=== PATIENT | female | born 1975 | race Caucasian/White ===

== ENCOUNTER 2016-07-21 06:53 | Emergency (ER) | payer BC ==
[2016-07-21] MEDS ORDERED: Sodium Chloride 0.9% 10 ML Syringe FLUSH PRN (07:16)
[2016-07-21] MEDS ORDERED: Sodium Chloride 0.9% 2.5 ML Syringe FLUSH PRN (07:16)
[2016-07-21] MEDS ORDERED: Sodium Chloride 0.9% 1,000 ML IV ONE (07:16)
--- NOTE | 2016-07-21 07:20 | EDM.PDOC ---
ED HISTORY OF PRESENT ILLNESS - General Chief Complaint: Cardiovascular Problem Stated Complaint: SVT Time Seen by Provider: 07/21/16 07:09 - History of Present Illness INITIAL COMMENTS - FREE TEXT/NARRATIVE: HISTORY AND PHYSICAL: History of present illness: Patient is a 41-year-old female who presents with complaints of SVT via EMS. According to the patient she has had this before and a Holter monitor but has never done EP studies. She was here in March and had SVT and converted with adenosine 6 mg times one which do not follow up with her shed hand afterwards. She said she went into it this morning but had no triggers. She's been eating and drinking normally hasn't had fever chills chest pain shortness of breath abdominal pain or vomiting/diarrhea. She does smoke cigarettes but denies drug use and does not drink excessive caffeine. She did have alcohol last evening. When she arrived her her rate was in the 180s but with the IV start she vagalled and right now her heart rate is 100-110. She said she tried vagal maneuvers at home but they did not seem to work. She has no leg pain or swelling Review of systems: As per history of present illness and below otherwise all systems reviewed and negative. Past medical history: As per history of present illness and as reviewed below otherwise noncontributory. Surgical history: As per history of present illness and as reviewed below otherwise noncontributory. Social history: No reported history of drug or alcohol abuse. Family history: As per history of present illness and as reviewed below otherwise noncontributory. Physical exam: General: Well-developed well-nourished female who is nontoxic and speaking clearly and easily in ED vital signs have been reviewed by me HEENT: Atraumatic, normocephalic, negative for conjunctival pallor or scleral icterus, mucous membranes moist, throat clear, neck supple, nontender, trachea midline. No thyromegaly Lungs: Clear to auscultation, breath sounds equal bilaterally, chest nontender. Heart: S1S2, regular rhythm and slightly tachycardic rate of my evaluation, negative for clicks, rubs, or JVD. Abdomen: Soft, nondistended, nontender. Negative for masses or hepatosplenomegaly. Negative for costovertebral tenderness. Pelvis: Stable nontender. Genitourinary: Deferred. Rectal: Deferred. Extremities: Atraumatic, negative for cords or calf pain. Neurovascular unremarkable. No pedal edema or leg asymmetry Neuro: Awake, alert, oriented. Cranial nerves II through XII unremarkable. Cerebellum unremarkable. Motor and sensory unremarkable throughout. Exam nonfocal. Diagnostics: EKG CBC CMP troponin TSH portable chest x-ray Therapeutics: IV fluids monitor O2 as needed Please note on the rhythm strip that EMS brought in her heart rate was 186 and an SVT was identified [id number]: Case was discussed with her shed hand Dr. Walker; He has her information in his office will call for followup appointment. Patient is aware of this. I will also give her referral to primary care. I've advised hydration avoidance of caffeine and alcohol and reasons to return to the ED. Heart rate at 0815a is in the 90s and patient feels improved Impression: SVT, spontaneous conversion with vagal maneuver, history of same Definitive disposition and diagnosis as appropriate pending reevaluation and review of above. - Related Data Allergies/ADRs: Allergies Allergy/AdvReac Type Severity Reaction Status Date / Time Penicillins Allergy Cannot Verified 07/21/16 06:59 Remember Home Meds: Home Meds Albuterol [IJD: Albuterol HFA] 1 puff INH TID PRN 01/09/16 [History] Fluticasone/Salmeterol [Advair Diskus 250-50] 1 puff INH BID #1 inhaler [Rx] Loratadine 10 mg DAILY 03/21/16 [History] Prednisone [IJD: predniSONE] 20 mg PO TID 03/21/16 [History] Past Medical History HEENT History: Reports: None Cardiovascular History: Reports: Other (see below) Other Cardiovascular History: svt Respiratory History: Reports: Asthma Gastrointestinal History: Reports: None Genitourinary History: Reports: None 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: Musculoskeletal History: Reports: None Neurological History: Reports: None Psychiatric History: Reports: None Other Psychiatric History: Received treatment for alcohol Endocrine/Metabolic History: Reports: None Hematologic History: Reports: None Immunologic History: Reports: None Oncologic (Cancer) History: Reports: None Dermatologic History: Reports: None - Infectious Disease History Infectious Disease History: Reports: Chicken pox - Past Surgical History Head Surgeries/Procedures: Reports: None GI Surgical History: Reports: None Female Surgical History: Reports: section Endocrine Surgical History: Reports: None Musculoskeletal Surgical History: Reports: None Dermatological Surgical History: Reports: None Social & Family History - Family History Family Medical History: Noncontributory - Tobacco Use Smoking Status *Q: Current Every Day Smoker Years of Tobacco use: 20 Packs/Tins Daily: 0.2 Used Tobacco, but Quit: Yes Month Tobacco Last Used: 10/2015 Second Hand Smoke Exposure: No - Recreational Drug Use Recreational Drug Use: No ED ROS GENERAL - Review of Systems Review Of Systems: ROS reveals no pertinent complaints other than HPI. ED EXAM, GENERAL - Physical Exam Exam: See Below (See dictation) Course - Vital Signs Last Recorded V/S: Last Vital Signs Temp 36.6 C 07/21/16 07:00 Pulse 115 H 07/21/16 07:04 Resp 20 07/21/16 07:00 BP 106/76 07/21/16 07:00 Pulse Ox 98 07/21/16 07:00 - Orders/Labs/Meds Orders: Active Orders 24 hr Category Date Time Status Cardiac Monitoring [RC] . DIRECTED Care 07/21/16 07:15 Active EKG Documentation Completion [RC] STAT Care 07/21/16 07:15 Active Pulse Oximetry [RC] ASDIRECTED Care 07/21/16 07:15 Active Chest 1V Frontal [CR] Stat Exams 07/21/16 07:20 Taken Sodium Chloride 0.9% [Saline Flush] Med 07/21/16 07:16 Active 10 ml FLUSH ASDIRECTED PRN Sodium Chloride 0.9% [Saline Flush] Med 07/21/16 07:16 Active 2.5 ml FLUSH ASDIRECTED PRN Saline Lock Insert [OM.PC] Stat Oth 07/21/16 07:16 Ordered Medication Orders Sodium Chloride (Saline Flush) 10 ml FLUSH ASDIRECTED PRN PRN Reason: Keep Vein Open Sodium Chloride (Saline Flush) 2.5 ml FLUSH ASDIRECTED PRN PRN Reason: Keep Vein Open Labs: Laboratory Tests 07/21/16 07/21/16 07/21/16 Range/Units 07:04 07:04 07:04 WBC 5.63 (4.0-11.0) K/uL RBC 4.67 (4.30-5.90) M/uL Hgb 14.8 (12.0-16.0) g/dL Hct 43.7 (36.0-46.0) % MCV 93.6 (80.0-98.0) fL MCH 31.7 (27.0-32.0) pg MCHC 33.9 (31.0-37.0) g/dL RDW Std Deviation 45.4 (28.0-62.0) fl RDW Coeff of Kenny 14 (11.0-15.0) % Plt Count 168 (150-400) K/uL MPV 9.70 (7.40-12.00) fL Neut % (Auto) 63.7 (48.0-80.0) % Lymph % (Auto) 21.7 (16.0-40.0) % [place] % (Auto) 11.0 (0.0-15.0) % Eos % (Auto) 3.2 (0.0-7.0) % Baso % (Auto) 0.4 (0.0-1.5) % Neut # 3.6 (1.4-5.7) K/uL Lymph # 1.2 (0.6-2.4) K/uL [place] # 0.6 (0.0-0.8) K/uL Eos # 0.2 (0.0-0.7) K/uL Baso # 0.0 (0.0-0.1) K/uL Sodium 138 (136-146) mmol/L Potassium 4.2 (3.5-5.1) mmol/L Chloride 107 (98-110) mmol/L Carbon Dioxide 21 (21-31) mmol/L BUN 8 (6.0-23.0) mg/dL Creatinine 0.8 (0.6-1.5) mg/dL Est Cr Clr Drug Dosing 95.74 mL/min Estimated GFR (MDRD) > 60.0 ml/min Glucose 116 H (60-110) mg/dL Calcium 9.1 (8.8-10.8) mg/dL Total Bilirubin 0.3 (0.1-1.5) mg/dL AST 95 H (5-40) IU/L ALT 109 H (8-54) IU/L Alkaline Phosphatase 65 (40-150) Troponin I < 0.10 (0.0-0.29) NG/ML Total Protein 8.3 H (6.0-8.0) g/dL Albumin 4.2 (3.5-5.0) g/dL Globulin 4.1 H (2.0-3.5) g/dL Albumin/Globulin Ratio 1.0 L (1.3-2.8) TSH 3rd Generation 1.76 (0.47-5.0) uIU/mL Meds: Medications Generic Name Dose Route Start Last Admin Trade Name Freq PRN Reason Stop Dose Admin Sodium Chloride 10 ml 07/21/16 07:16 Saline Flush FLUSH ASDIRECTED PRN Keep Vein Open Sodium Chloride 2.5 ml 07/21/16 07:16 Saline Flush FLUSH ASDIRECTED PRN Keep Vein Open Discontinued Medications Generic Name Dose Route Start Last Admin Trade Name Freq PRN Reason Stop Dose Admin Sodium Chloride 1,000 mls @ 999 mls/hr 07/21/16 07:16 07/21/16 07:23 Normal Saline IV 07/21/16 08:16 999 mls/hr STAT ONE Administration Departure - Departure Time of Disposition: 08:18 Disposition: Home, Self-Care 01 Condition: good Clinical Impression: SVT (supraventricular tachycardia) Forms: ED Department Discharge Additional Instructions: The following information is given to patients seen in the emergency department who are being discharged to home. This information is to outline your options for follow-up care. We provide all patients seen in our emergency department with a follow-up referral. The need for follow-up, as well as the timing and circumstances, are variable depending upon the specifics of your emergency department visit. If you don't have a primary care physician on staff, we will provide you with a referral. We always advise you to contact your personal physician following an emergency department visit to inform them of the circumstance of the visit and for follow-up with them and/or the need for any referrals to a consulting specialist. The emergency department will also refer you to a specialist when appropriate. This referral assures that you have the opportunity for followup care with a specialist. All of these measure are taken in an effort to provide you with optimal care, which includes your followup. Under all circumstances we always encourage you to contact your private physician who remains a resource for coordinating your care. When calling for followup care, please make the office aware that this follow-up is from your recent emergency room visit. If for any reason you are refused follow-up, please contact the [facility] emergency department at and ask to speak to the emergency department charge nurse. [facility] Primary care- Internal Medicine and Family [address] [address] These call and make appointment with primary care physician as we discussed and the shed hand's office will call you with a followup appointment with him. Please avoid caffeine and alcohol for the next 2 days and push hydration. Return to ER as needed and as discussed - My Orders Last 24 Hours: My Active Orders 07/21/16 07:15 Cardiac Monitoring [RC] . DIRECTED EKG Documentation Completion [RC] STAT Pulse Oximetry [RC] ASDIRECTED 07/21/16 07:16 Sodium Chloride 0.9% [Saline Flush] 10 ml FLUSH ASDIRECTED PRN Sodium Chloride 0.9% [Saline Flush] 2.5 ml FLUSH ASDIRECTED PRN Saline Lock Insert [OM.PC] Stat 07/21/16 07:20 Chest 1V Frontal [CR] Stat - Assessment/Plan Last 24 Hours: My Active Orders 07/21/16 07:15 Cardiac Monitoring [RC] . DIRECTED EKG Documentation Completion [RC] STAT Pulse Oximetry [RC] ASDIRECTED 07/21/16 07:16 Sodium Chloride 0.9% [Saline Flush] 10 ml FLUSH ASDIRECTED PRN Sodium Chloride 0.9% [Saline Flush] 2.5 ml FLUSH ASDIRECTED PRN Saline Lock Insert [OM.PC] Stat 07/21/16 07:20 Chest 1V Frontal [CR] Stat
[2016-07-21 07:43] LABS: CHLORIDE,CL 107 mmol/L (98-110); SODIUM,NA 138 mmol/L (136-146)
[2016-07-21 08:37] VITALS: BP 118/85
--- NOTE | 2016-07-21 19:56 | CR ---
EXAM DATE: 07/21/16 PATIENT'S AGE: 41 Patient: MEAGAN FREITAS Facility: [place], [place] Site . Site : 1975 Study: XRay Chest [id number] 7:38:00 AM Ordering Physician: Bebe Minor Final Report: INDICATION: Rapid heart rate. Technique: AP portable chest x-ray. Findings: Minimal peribronchial cuffing in the right suprahilar region could be related to bronchial inflammation. Bronchovascular markings in the perihilar regions are mildly increased. No focal infiltrate or consolidation in either lung. Heart size normal. Chest otherwise negative. Dictated by Chato Miller MD @ Jul 21 2016 7:49AM (Electronic Signature) Report Signed by Proxy and Original Signed Document filed in the Medical Record. MTDD
== END 2016-07-21 08:30 | disposition home or self-care (01) ==
LOC: MW.ED 06:53
DX: I47.1 Supraventricular tachycardia (principal); F17.210 Nicotine dependence, cigarettes, uncomplicated; Z88.0 Allergy status to penicillin; Z79.899 Other long term (current) drug therapy
CPT/HCPCS: 36415; 71010; 80053; 84443; 84484; 85025; 93005; 96360; 99285; J7040; 99284

== ENCOUNTER 2016-08-18 07:36 | Emergency (ER) | payer BC ==
[2016-08-18] MEDS ORDERED: Sodium Chloride 0.9% 10 ML Syringe FLUSH PRN (07:39)
[2016-08-18] MEDS ORDERED: Sodium Chloride 0.9% 2.5 ML Syringe FLUSH PRN (07:39)
[2016-08-18] MEDS ORDERED: Adenosine 6 MG/2 ML SDV IVPUSH ONE (07:47)
[2016-08-18] MEDS ORDERED: Adenosine 6 MG/2 ML SDV ONE (07:49)
[2016-08-18] MEDS ORDERED: Sodium Chloride 0.9% 500 ML IV SCH (07:57)
[2016-08-18] MEDS ORDERED: Sodium Chloride 0.9% 1,000 ML IV ONE (07:59)
[2016-08-18 08:31] LABS: CHLORIDE,CL 110 mmol/L (98-110); SODIUM,NA 139 mmol/L (136-146)
--- NOTE | 2016-08-18 08:39 | EDM.PDOC ---
ED HISTORY OF PRESENT ILLNESS - General Chief Complaint: Cardiovascular Problem Stated Complaint: RAPID HEARTBEAT Time Seen by Provider: 08/18/16 07:40 Source of Information: Reports: Patient History Limitations: Reports: No limitations - History of Present Illness INITIAL COMMENTS - FREE TEXT/NARRATIVE: History of present illness: [] Patient has a history of SVT and felt the palpitations start this morning. She denies any chest pain or shortness of breath states that she feels a lightheaded and dizzy. She has had adenosine in the past has worked well I did for many years on this morning without success the Review of systems: As per history of present illness and below otherwise all systems reviewed and negative. Past medical history: As per history of present illness and as reviewed below otherwise noncontributory. Surgical history: As per history of present illness and as reviewed below otherwise noncontributory. Social history: No reported history of drug or alcohol abuse. Family history: As per history of present illness and as reviewed below otherwise noncontributory. Physical exam: General: Well developed, well nourished in NAD HEENT: Atraumatic, normocephalic, pupils reactive, negative for conjunctival pallor or scleral icterus, mucous membranes moist, throat clear, neck supple, nontender, trachea midline. Lungs: Clear to auscultation, breath sounds equal bilaterally, chest nontender. Heart: S1S2, regular, negative for clicks, rubs, or JVD. Abdomen: Soft, nondistended, nontender. Negative for masses or hepatosplenomegaly. Negative for costovertebral tenderness. Pelvis: Stable nontender. Genitourinary: Deferred. Rectal: Deferred. Extremities: Atraumatic, negative for cords or calf pain. Neurovascular unremarkable. Neuro: Awake, alert, oriented. Cranial nerves II through XII unremarkable. Cerebellum unremarkable. Motor and sensory unremarkable throughout. Exam nonfocal. Diagnostics: [] EKG and labs showing SVT labs normal. Therapeutics: [] Adenosine Impression: [] SVT resolved with adenosine Plan: [] Followup cardiology call for an appointment Definitive disposition and diagnosis as appropriate pending reevaluation and review of above. - Related Data Allergies/ADRs: Allergies Allergy/AdvReac Type Severity Reaction Status Date / Time Penicillins Allergy Cannot Verified 07/21/16 06:59 Remember Home Meds: Home Meds Albuterol [IJD: Albuterol HFA] 1 puff INH TID PRN 01/09/16 [History] Loratadine 10 mg PO DAILY PRN 03/21/16 [History] Fluticasone/Salmeterol [Advair Diskus 250-50] 1 puff INH BID PRN 08/18/16 [ History] Past Medical History HEENT History: Reports: None Cardiovascular History: Reports: Other (see below) Other Cardiovascular History: svt Respiratory History: Reports: Asthma Gastrointestinal History: Reports: None Genitourinary History: Reports: None 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: Musculoskeletal History: Reports: None Neurological History: Reports: None Psychiatric History: Reports: None Other Psychiatric History: Received treatment for alcohol Endocrine/Metabolic History: Reports: None Hematologic History: Reports: None Immunologic History: Reports: None Oncologic (Cancer) History: Reports: None Dermatologic History: Reports: None - Infectious Disease History Infectious Disease History: Reports: Chicken pox - Past Surgical History Head Surgeries/Procedures: Reports: None GI Surgical History: Reports: None Female Surgical History: Reports: section Endocrine Surgical History: Reports: None Musculoskeletal Surgical History: Reports: None Dermatological Surgical History: Reports: None Social & Family History - Family History Family Medical History: Noncontributory - Tobacco Use Smoking Status *Q: Current Every Day Smoker Years of Tobacco use: 15 Packs/Tins Daily: 0.5 Used Tobacco, but Quit: Yes Month Tobacco Last Used: 10/2015 Second Hand Smoke Exposure: No - Caffeine Use Caffeine Use: Reports: Coffee - Recreational Drug Use Recreational Drug Use: No ED ROS GENERAL - Review of Systems Review Of Systems: See Below (See history of present illness) ED EXAM, GENERAL - Physical Exam Exam: See Below (See history of present illness) Course - Vital Signs Last Recorded V/S: Last Vital Signs Temp Pulse 166 H 08/18/16 08:11 Resp 18 08/18/16 07:44 BP 111/72 08/18/16 08:11 Pulse Ox 96 08/18/16 08:11 - Orders/Labs/Meds Orders: Active Orders 24 hr Category Date Time Status EKG 12 Lead [EKG Documentation Completion] [RC] STAT Care 08/18/16 08:14 Active EKG Documentation Completion [RC] STAT Care 08/18/16 07:39 Active Sodium Chloride 0.9% [Normal Saline] 500 ml Med 04/17/17 07:57 Active IV .BOLUS Sodium Chloride 0.9% [Saline Flush] Med 08/18/16 07:39 Active 10 ml FLUSH ASDIRECTED PRN Sodium Chloride 0.9% [Saline Flush] Med 08/18/16 07:39 Active 2.5 ml FLUSH ASDIRECTED PRN Peripheral IV Insertion Adult [OM.PC] Stat Oth 08/18/16 07:39 Ordered Medication Orders Sodium Chloride (Normal Saline) 500 mls @ 999 mls/hr IV .BOLUS HERMINIO Last Admin: 08/18/16 07:58 Dose: 999 mls/hr Sodium Chloride (Saline Flush) 10 ml FLUSH ASDIRECTED PRN PRN Reason: Keep Vein Open Last Admin: 08/18/16 07:51 Dose: 10 ml Sodium Chloride (Saline Flush) 2.5 ml FLUSH ASDIRECTED PRN PRN Reason: Keep Vein Open Last Admin: 08/18/16 07:54 Dose: 2.5 ml Labs: Laboratory Tests 08/18/16 08/18/16 Range/Units 07:43 07:43 WBC 4.77 (4.0-11.0) K/uL RBC 4.51 (4.30-5.90) M/uL Hgb 14.3 (12.0-16.0) g/dL Hct 42.4 (36.0-46.0) % MCV 94.0 (80.0-98.0) fL MCH 31.7 (27.0-32.0) pg MCHC 33.7 (31.0-37.0) g/dL RDW Std Deviation 48.5 (28.0-62.0) fl RDW Coeff of Kenny 14 (11.0-15.0) % Plt Count 172 (150-400) K/uL MPV 9.60 (7.40-12.00) fL Neut % (Auto) 49.3 (48.0-80.0) % Lymph % (Auto) 36.7 (16.0-40.0) % [place] % (Auto) 9.0 (0.0-15.0) % Eos % (Auto) 4.4 (0.0-7.0) % Baso % (Auto) 0.6 (0.0-1.5) % Neut # (Auto) 2.4 (1.4-5.7) K/uL Lymph # (Auto) 1.8 (0.6-2.4) K/uL [place] # (Auto) 0.4 (0.0-0.8) K/uL Eos # (Auto) 0.2 (0.0-0.7) K/uL Baso # (Auto) 0.0 (0.0-0.1) K/uL Nucleated RBC % 0.0 /100WBC Nucleated RBCs # 0 K/uL Sodium 139 (136-146) mmol/L Potassium 4.0 (3.5-5.1) mmol/L Chloride 110 (98-110) mmol/L Carbon Dioxide 18 L (21-31) mmol/L BUN 7 (6.0-23.0) mg/dL Creatinine 0.7 (0.6-1.5) mg/dL Est Cr Clr Drug Dosing 105.61 mL/min Estimated GFR (MDRD) > 60.0 ml/min Glucose 84 (60-110) mg/dL Calcium 8.7 L (8.8-10.8) mg/dL Total Bilirubin 0.3 (0.1-1.5) mg/dL AST 100 H (5-40) IU/L ALT 129 H (8-54) IU/L Alkaline Phosphatase 59 (40-150) Total Protein 7.5 (6.0-8.0) g/dL Albumin 4.0 (3.5-5.0) g/dL Globulin 3.5 (2.0-3.5) g/dL Albumin/Globulin Ratio 1.1 L (1.3-2.8) Meds: Medications Generic Name Dose Route Start Last Admin Trade Name Freq PRN Reason Stop Dose Admin Sodium Chloride 500 mls @ 999 mls/hr 08/18/16 07:57 08/18/16 07:58 Normal Saline IV 999 mls/hr .BOLUS HERMINIO Administration Sodium Chloride 10 ml 08/18/16 07:39 08/18/16 07:51 Saline Flush FLUSH 10 ml ASDIRECTED PRN Administration Keep Vein Open Sodium Chloride 2.5 ml 08/18/16 07:39 08/18/16 07:54 Saline Flush FLUSH 2.5 ml ASDIRECTED PRN Administration Keep Vein Open Discontinued Medications Generic Name Dose Route Start Last Admin Trade Name Freq PRN Reason Stop Dose Admin Adenosine 6 mg 08/18/16 07:47 08/18/16 07:51 Adenocard IVPUSH 08/18/16 07:48 6 mg NOW ONE Administration Adenosine Confirm 08/18/16 07:49 08/18/16 07:56 Adenocard Administered 08/18/16 07:50 Not Given Dose 6 mg .ROUTE .STK-MED ONE Sodium Chloride 1,000 mls @ 999 mls/hr 08/18/16 07:59 08/18/16 08:21 Normal Saline IV 08/18/16 08:59 Not Given .Bolus ONE Departure - Departure Time of Disposition: 08:38 Disposition: Home, Self-Care 01 Condition: good Clinical Impression: SVT (supraventricular tachycardia) Forms: ED Department Discharge Additional Instructions: The following information is given to patients seen in the emergency department who are being discharged to home. This information is to outline your options for follow-up care. We provide all patients seen in our emergency department with a follow-up referral. The need for follow-up, as well as the timing and circumstances, are variable depending upon the specifics of your emergency department visit. If you don't have a primary care physician on staff, we will provide you with a referral. We always advise you to contact your personal physician following an emergency department visit to inform them of the circumstance of the visit and for follow-up with them and/or the need for any referrals to a consulting specialist. The emergency department will also refer you to a specialist when appropriate. This referral assures that you have the opportunity for follow-up care with a specialist. All of these measure are taken in an effort to provide you with optimal care, which includes your follow-up. Under all circumstances we always encourage you to contact your private physician who remains a resource for coordinating your care. When calling for follow-up care, please make the office aware that this follow-up is from your recent emergency room visit. If for any reason you are refused follow-up, please contact the [facility] Emergency Department at and asked to speak to the emergency department charge nurse. [facility] Dr. [place]. [place] [address] [place], [place] [address] [phone] - My Orders Last 24 Hours: My Active Orders 08/18/16 07:39 EKG Documentation Completion [RC] STAT Sodium Chloride 0.9% [Saline Flush] 10 ml FLUSH ASDIRECTED PRN Sodium Chloride 0.9% [Saline Flush] 2.5 ml FLUSH ASDIRECTED PRN Peripheral IV Insertion Adult [OM.PC] Stat 08/18/16 07:57 Sodium Chloride 0.9% [Normal Saline] 500 ml IV .BOLUS 08/18/16 08:14 EKG 12 Lead [EKG Documentation Completion] [RC] STAT - Assessment/Plan Last 24 Hours: My Active Orders 08/18/16 07:39 EKG Documentation Completion [RC] STAT Sodium Chloride 0.9% [Saline Flush] 10 ml FLUSH ASDIRECTED PRN Sodium Chloride 0.9% [Saline Flush] 2.5 ml FLUSH ASDIRECTED PRN Peripheral IV Insertion Adult [OM.PC] Stat 08/18/16 07:57 Sodium Chloride 0.9% [Normal Saline] 500 ml IV .BOLUS 08/18/16 08:14 EKG 12 Lead [EKG Documentation Completion] [RC] STAT
[2016-08-18 09:06] VITALS: BP 115/83
== END 2016-08-18 08:50 | disposition home or self-care (01) ==
LOC: MW.ED 07:36
DX: I47.1 Supraventricular tachycardia (principal); J45.909 Unspecified asthma, uncomplicated; F17.210 Nicotine dependence, cigarettes, uncomplicated; Z88.0 Allergy status to penicillin; Z79.899 Other long term (current) drug therapy
CPT/HCPCS: 36415; 80053; 85025; 93005; 96361; 96374; 99285; J0153; J7040; 99284